=== PATIENT | female | born 1980 | race Two or more races ===

== ENCOUNTER 2024-09-11 17:41 | Emergency (ER) | payer MEDICAID, OTHER ==
[~2024-09-11] VITALS: Ht 154.9 cm; Wt 52.1 kg
[2024-09-11 18:39] VITALS: BP 164/97; PULSE 100; RESP 18; TEMP 98.1; O2SAT 96
[2024-09-11] MEDS: cefTRIAXone SOD 1,000 MG VL IM ONE (19:04)
[2024-09-11] MEDS: DexAMETHasone SOD PHOS 10MG/1ML VIAL INJ IM ONE (19:04)
[2024-09-11] MEDS: LIDOCAINE 1% HCL (LOCAL ANESTH.) INJ 20ML MDV ID ONE (19:09)
[2024-09-11] MEDS ORDERED: MOXI0.5S3 OP (19:25)
--- NOTE | 2024-09-11 19:25 | ED.PDOC ---
Eye-HPI HPI Comments This is a 44-year-old female presents to the ED chief complaint of right eye pain swelling and redness. Patient states symptoms started 8 hours ago. She states has been trying to get her contacts out of her right eye. She states she did remove it but now it is red burning and complaining of eye pain. Denies vision changes, fever, chills, nausea or vomiting. 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[employer] ARC History Family History Family History: Reviewed,noncontributory to illness Social History Smoker: Cigarettes Alcohol: Denies ETOH Use Drugs: Denies Drug Use Constitutional: denies: chills, diaphoresis, fatigue, fever, malaise, sweats, weakness, others EENTM: reports: eye pain, eye redness; denies: blurred vision, double vision, ear bleeding, ear discharge, ear drainage, ear pain, ear ringing, hearing loss, mouth pain, mouth swelling, nasal discharge, nose bleeding, nose congestion, nose pain, photophobia, tearing, throat pain, throat swelling, voice changes, others Respiratory: denies: cough, hemoptysis, orthopnea, SOB at rest, shortness of breath, SOB with excertion, stridor, wheezing, others Cardiovascular: denies: chest pain, dizzy spells, diaphoresis, Dyspnea on exe rtion, edema, irregular heart beat, left arm pain, lightheadedness, palpitations, PND, syncope, others Gastrointestinal: denies: abdomen distended, abdominal pain, blood streaked bowels, constipated, diarrhea, dysphagia, difficulty swallowing, hematemesis, melena, nausea, poor appetite, poor fluid intake, rectal bleeding, rectal pain, vomiting, others Genitourinary: denies: abnormal vagina bleeding, burning, dyspareunia, dysuria, flank pain, frequency, hematuria, incontinence, pain, , vagina discharge, urgency, others Neurological: denies: dizziness, fainting, headache, left sided numbness, left sided weakness, numbness, paresthesia, pre-existing deficit, right sided numbness, right sided weakness, seizure, speech problems, tingling, tremors, weakness, others Musculoskeletal: denies: back pain, gout, joint pain, joint swelling, muscle pain, muscle stiffness, neck pain, others Integumetry: denies: bruises, change in color, change in hair/nails, dryness, laceration, lesions, lumps, rash, wounds, others Allergic/Immunocompromised: denies: Difficulty Healing, Frequent Infections, Hives, Itching, others Hematologic/Lymphatic: denies: anemia, blood clots, easy bleeding, easy bruising, swollen glands, others Endocrine: denies: excessive hunger, excessive sweating, excessive thirst, excessive urination, flushing, intolerance to cold, intolerance to heat, unexplained weight gain, unexplained weight loss, others Psychiatric: denies: anxiety, bipolar disorder, depression, hopeless, panic disorder, schizophrenia, sleepless, suicidal, others Physical Exam General Appearance: No Apparent Distress, Normal HEENT: Pharynx Normal, TMs Normal, Other (Right eye hyperemia conjunctiva with periorbital swelling and erythema.) Neck: Full Range of Motion, Non-Tender, Normal, Normal Inspection Respiratory: Chest Non-Tender, Lungs Clear, No Accessory Muscle Use, No Respiratory Distress, Normal Breath Sounds Cardiovascular: No Edema, No JVD, No Murmur, No Gallop, Normal Peripheral Pulses, Regular Rate/Rhythm Breast Exam: Deferred Gastrointestinal: No Organomegaly, Non Tender, No Pulsatile Mass, Normal Bowel Sounds, Soft Genitalia: Deferred Pelvic: Deferred Rectal: Deferred Extremities: No calf tenderness, Normal capillary refill, Normal inspection, Normal range of motion, Non-tender, No pedal edema Musculoskeletal : Apperance: Normal Neurologic: Alert, development assistant II-XII nml as Tested, No Motor Deficits, Normal Affect, Normal Mood, No Sensory Deficits Cerebellar Function: Normal Reflexes: Normal Skin: Dry, Normal Color, Warm Lymphatic: No Adenopathy Was a procedure done? Was a procedure done?: No EENT DIFF Eye: Corneal Ulceration, Foreign Body-Conjunctiva, Foreign Body-Corneal X-Ray, Labs, Meds, VS Vital Signs Date Time Temp Pulse Resp B/P (MAP) Pulse Ox O2 Delivery O2 Flow Rate FiO2 09/11/24 18:39 100 18 96 Room Air 09/11/24 18:39 98.1 100 18 164/97 (119) 96 98.1 09/11/24 18:13 98.1 100 18 164/97 (119) 96 X-Ray, Labs, Meds, VS Comment Patient given ceftriaxone 1 g. Patient given Toradol 60 mg and Decadron 10 mg. Likely infected from patient contact in her sticking her fingers in air trying to get her contact out. We will start on antibiotic eyedrops. Advised to follow up with PCP in 2-3 days consider referral to Ophthalmology for continued symptoms. ER return precautions given. Patient indicated understanding. Patient agrees with discharge plan of care. Time of 1ST Reevaluation: 19:15 Reevaluation 1ST: Improved Patient Education/Counseling: Diagnosis, Treatment, Prognosis, Need For Follow Up Family Education/Counseling: Diagnosis, Treatment, Prognosis, Need For Follow Up Departure 1 Departure Time of Disposition: 19:21 Impression: Primary Impression: Eye infection Qualified Codes: H44.001 - Unspecified purulent endophthalmitis, right eye Disposition: HOME / SELF CARE / HOMELESS Condition: Stable e-Prescriptions Moxifloxacin Hydrochloride (Moxifloxacin HCl) 0.5 % Ileana 1 DROP OP TID for 7 Days, #2 ML Prov: TONIO NOE 09/11/24 Discharged With: Spouse Critical Care Note Critical Care Time?: No Stability Stability form required: No TONIO NOE Sep 11, 2024 19:25
== END 2024-09-11 19:38 | disposition home or self-care (01) ==
LOC: ER 17:41
DX: H44.001 Unspecified purulent endophthalmitis, right eye (principal); F17.210 Nicotine dependence, cigarettes, uncomplicated
CPT/HCPCS: 96372; 99284; J0696; J1100; J2003